=== PATIENT | male | born 1960 | race African-American/Black ===

== ENCOUNTER 2016-10-24 12:15 | Inpatient (IN) | payer OTHER ==
[~2016-10-24] VITALS: Ht 180.3 cm; Wt 63.8 kg
--- NOTE | ~2016-10-24 | EKG ---
PATIENT: LOUIS FRANCISCO UNIT #: [id number] Ventricular Rate: 60 BPM Atrial Rate: 60 BPM P-R Interval: 148 ms QRS Duration: 84 ms Q-T Interval: 502 ms QTC Calculation(Bezet): 502 ms P [place]: 62 degrees Calculated R [place]: 1 degrees Calculated T [place]: -85 degrees Diagnosis Line: Normal sinus rhythm Diagnosis Line: Voltage criteria for left ventricular hypertrophy Diagnosis Line: T wave abnormality, consider inferior ischemia Diagnosis Line: Prolonged QT Diagnosis Line: Abnormal ECG Diagnosis Line: When compared with ECG of 24-OCT-2016 13:15, Diagnosis Line: (unconfirmed) Diagnosis Line: Nonspecific T wave abnormality has replaced Diagnosis Line: inverted T waves in Anterolateral leads Diagnosis Line: Confirmed by ABDIRAHMAN BARBER MD ([id number]) on Diagnosis Line: 10/27/2016 7:10:19 AM INTERPRETING MD: DEDRICK
--- NOTE | ~2016-10-24 | DS ---
Unit #: [id number] #: [id number] Patient: LOUIS FRANCISCO [id number] [facility]. [place], [place] [address] [id number] I MR#: [id number] NAME: LOUIS FRANCISCO. ROOM: 314 Age: 56 Sex: M Admission Date: 10/24/2016 : 1960 Discharge Date: 10/31/2016 Attending Physician: Kevin Anthony M.D. Primary Care Physician: Tk David Sr., M.D. DISCHARGE SUMMARY DISCHARGE DIAGNOSES 1. Acute ischemic cerebrovascular accident. 2. Hypertension, hypertensive urgency. 3. Diabetes. 4. Aortic atheroma. 5. Hyperlipidemia. 6. Acute kidney injury. 7. Chronic systolic heart failure. 8. Chronic diastolic heart failure. HOSPITAL COURSE The patient is a 56-year-old male who presented to [facility] Emergency Department secondary to right-sided weakness. Apparently, he woke up in the middle of the night to go to the bathroom the night prior to presentation and noted some numbness in the right side. Apparently, he had then fallen down onto his bed and was unable to call for help. He was later found and was noted to have worsening of his weakness on the right side and was brought to the emergency department. In the emergency department, CT of the head showed increased attenuation of the left internal capsule, left insula, and left caudate head. The patient was admitted to the ICU and neurology consult was obtained. The patient was outside the window for intervention, however. He was started on a Cardene drip for elevated blood pressures. The patient's creatinine was noted to be elevated and did have an unknown baseline. Initial creatinine was 1.7 and it declined to 2. As a result, ultimately a renal consult was obtained. At this time, it is trending down with 2 having been the highest value. It is 1.4 at the time of this dictation. Patient underwent MRI of the brain which showed 9-10 mm subacute ischemic infarct in the anterior left putamen and probably involved a portion of the left internal capsule anterior limb as well. Angiography revealed moderate siphon disease bilaterally with mild atherosclerotic irregularity of the basilar artery with 50% to 60% distal most left vertebral artery stenosis and a filling defect adhered to the posterior wall of the left proximal internal carotid artery just above the bifurcation which had narrowed the lumen to 45%. It was thought to represent an adherent thrombus at the carotid bifurcation and was thought to be a strong potential source of distal embolization; however, CT angiography done following revealed that the filling defect in the left proximal internal carotid artery on the MRA was artifact and thought to be from densely calcified plaque in the proximal ICA and that there was no significant stenosis by NASCET criteria. As a result, no intervention was thought to be needed. Unit #: [id number] #: [id number] Patient: LOUIS FRANCISCO The patient underwent 2D echo which showed a visually estimated ejection fraction of 45% to 50%. Given the nature of his stroke, however, the patient did then undergo SMITH for better visualization and was noted to have severe diffuse atherosclerotic plaques in the aorta with grade 4 calcified and fresh appearing atheroma. As a result, the patient was started on Coumadin. During his stay, the patient was seen by physical therapy and has had recommendation of [facility]. The patient has been accepted by [facility] and currently in the process of insurance approval. Once approved, the patient will be discharged to rehab. DISCHARGE MEDICATIONS 1. Tylenol 650 mg p.o. q.6 hours p.r.n. mild pain, headache. 2. Lovenox 60 mg subcutaneous b.i.d. 3. Coumadin 5 mg Monday, Monday, Monday, Monday and 7.5 mg Monday, , Monday. 4. Amlodipine 10 mg daily. 5. Senokot S one tab p.o. b.i.d. 6. MiraLax 17 g p.o. b.i.d. p.r.n. constipation. 7. Lipitor 80 mg p.o. nightly. 8. Hydralazine 75 mg b.i.d. 9. Zestril 5 mg daily. 10. Levemir 10 units b.i.d. 11. NovoLog high-dose sliding scale with meals. 12. Aspirin 325 mg p.o. daily. 13. Vitamin D 5000 units weekly. FOLLOWUP The patient should follow up with Dr. Tom Wadsworth upon discharge from [facility]. He should follow up with his primary care provider within one week of discharge from rehab. Dictated by... Kevin Anthony M.D. FELA/lupe TD: 10/31/2016 13:58 JOB #: [id number] DISCHARGE SUMMARY Page 1 of 1 X Kevin Anthony MD DISCHARGE SUMMARY
--- NOTE | ~2016-10-24 | US77 ---
[facility] A Service of [facility] & [facility] RADIOLOGY TEXT RESULTS PATIENT: LOUIS FRANCISCO LOCATION: [facility] 314-01 : 56 UNIT #: [id number] AGE: [address]: Kevin Anthony MD SEX: M ORDER DR: [id number] [facility] [address] [place], [place] [address] [id number] I MR#: [id number] Acc #: [id number] NAME: LOUIS FRANCISCO. : 1960 SEX: M STUDY DATE/TIME: 10/26/2016 18:29 [facility] RO[facility]: [facility] STUDY DESCRIPTION: US Kidney Bilateral Complete Attending Physician: Kevin Anthony M.D. Ordering Physician: Edmund Wooten M.D. Primary Care Physician: Tk David Sr., M.D. MEDICAL IMAGING REPORT This report is preliminary unless electronic signature is present EXAM Bilateral renal ultrasound 10/26/2016 HISTORY Acute renal failure for 3 days. Abnormal renal function tests. Elevated BUN of 30, elevated creatinine of 2. Abnormally low eGFR 41.4 today. FINDINGS The right kidney measured 9.4 cm, while the left kidney measures 11 cm in longitudinal dimensions. There is no evidence of hydronephrosis or nephrolithiasis. No cystic or solid mass lesions were seen on either kidney. There is normal renal cortical echogenicity. Images of the bladder are normal. IMPRESSION 1. Negative renal ultrasound. 2. Images of the bladder are normal. Dictated by... Lloyd Arzate M.D. THIS IS AN ELECTRONICALLY VERIFIED REPORT Lloyd Arzate M.D. at 10/27/2016 2:07 PM KRT/pcl TD: 10/26/2016 22:11 JOB #: [id number] MEDICAL IMAGING REPORT Page 1 of 1 COPY
--- NOTE | ~2016-10-24 | CT71 ---
[facility] A Service of [facility] & [facility] RADIOLOGY TEXT RESULTS PATIENT: LOUIS FRANCISCO LOCATION: [address] : [birth year] UNIT #: [id number] AGE: [address]: Kevin Anthony MD SEX: M ORDER DR: [id number] [facility] [address] [facility]. [place], [place] [address] [id number] I MR#: [id number] Acc #: [id number] NAME: LOUIS FRANCISCO. : 1960 SEX: M STUDY DATE/TIME: 10/24/2016 14:23 UNIT: [facility] ROOM: [facility] STUDY DESCRIPTION: CT Head Wo Contrast Attending Physician: Gaston Vernon M.D. Ordering Physician: Neville Mitchell M.D. Primary Care Physician: Tk David Sr., M.D. MEDICAL IMAGING REPORT This report is preliminary unless electronic signature is present EXAM CT of the head without contrast HISTORY Right-sided facial droop and weakness since last night. TECHNIQUE Axial CT images were obtained from vertex of the skull through the skull base. No intravenous contrast material was administered. This CT exam was performed with one or more of the following radiation dose reduction techniques: automatic exposure control, adjustment of mA and/or kV according to patient size, and iterative reconstruction. FINDINGS There is decreased attenuation identified within the left caudate lobe and the anterior limb of the left internal capsule, as well as the left insula. I think findings are certainly suspicious for acute infarct, given history. I do not see any evidence of hemorrhagic transformation. There is no midline shift or mass effect. Patient has an additional area of decreased attenuation seen within the left cerebellar hemisphere, which is actually favored to be probably chronic. Certainly, MRI would allow for much more sensitive evaluation of chronicity of these findings. There is a mucous retention cyst seen within the right maxillary sinus. The remainder of the paranasal sinuses and mastoid air cells appear clear. No aggressive osseous abnormalities are seen. There are no focal soft tissue abnormalities. IMPRESSION 1. Subtle areas of decreased attenuation seen within the internal limb of the left internal capsule and left insula, as well as more STS. [facility] A Service of [facility] & [facility] RADIOLOGY TEXT RESULTS PATIENT: LOUIS FRANCISCO LOCATION: [address] : [birth year] UNIT #: [id number] AGE: [address]: Kevin Anthony MD SEX: M ORDER DR: apparent decreased attenuation seen within the left caudate head. I think, given history, findings are certainly suspicious for evolving infarct, especially in the absence of any priors for comparison. There is no evidence of hemorrhagic transformation. Further evaluation with MRI is recommended. There is also an area of decreased attenuation within the left cerebellar hemisphere, which is favored to represent an old infarct but again, further evaluation with MRI is recommended. Findings were reviewed with Dr. Mitchell in the emergency department at the time of this dictation. Dictated by... Mei Real M.D. THIS IS AN ELECTRONICALLY VERIFIED REPORT Mei Real M.D. at 10/25/2016 4:30 PM AFF/pcl TD: 10/25/2016 01:31 JOB #: [id number] MEDICAL IMAGING REPORT Page 1 of 1 COPY
--- NOTE | ~2016-10-24 | ST ---
Unit #: [id number] #: [id number] Patient: LOUIS FRANCISCO [id number] [place], [place] [address] [id number] I MR#: [id number] NAME: LOUIS FRANCISCO. : 1960 SEX: M STUDY DATE/TIME: 10/26/2016 UNIT: [facility] ROOM: [facility] STUDY DESCRIPTION: Lexiscan stress test Attending Physician: Kevin Anthony M.D. Primary Care Physician: Tk David Sr., M.D. CARDIOLOGY REPORT PROCEDURE PERFORMED Lexiscan Cardiolite stress test. REPORT Baseline EKG - Normal sinus rhythm with ventricular rate 91 beats per minute, left ventricular hypertrophy, T wave inversion in inferior and anterolateral leads with left atrial abnormality. Lexiscan was injected within the first minute, followed by Cardiolite. FINDINGS 1. EKG during the test showed a 1 mm to 1.[address] depression in inferior and anterolateral leads, which improved at the end of the recovery phase with some T wave inversion in those leads. Also noted occasional to frequent premature ventricular complexes especially in the recovery phase. 2. The patient had no complaints of chest pain, palpitations or dizziness. Had increased shortness of breath and fatigue, which resolved in recovery phase. 3. Maximum heart rate response was 115 beats per minute with a maximum blood pressure response of 141/72 mmHg. 4. Cardiolite was injected after Lexiscan within the first minute of the test. Radionuclide tests pending. Please correlate with nuclear images. Dictated by... Kita SteenRElaNEla for Deanne Recio/tatum TD: 10/26/2016 12:07 JOB #: [id number] Unit #: [id number] #: [id number] Patient: LOUIS FRANCISCO CARDIOLOGY REPORT Page 1 of 1 X Dana Voss APRN CARDIOLOGY REPORT
--- NOTE | ~2016-10-24 | CO ---
Unit #: [id number] #: [id number] Patient: LOUIS FRANCISCO [id number] [facility]. [place], [place] [address] [id number] I MR#: [id number] NAME: LOUIS FRANCISCO. ROOM: [facility] Age: 56 Sex: M Admission Date: 10/24/2016 : 1960 Attending Physician: Kevin Anthony M.D. Primary Care Physician: Tk David Sr., M.D. CONSULTATION REPORT REASON FOR CONSULTATION Preoperative evaluation and transesophageal echocardiogram. HISTORY OF PRESENT ILLNESS This is a 56-year-old -Omani male who was admitted to the hospital with right-sided weakness. The patient was in his usual state of health on the day prior to his admission. During the night, he developed left-sided weakness and was unable to get up. He crawled back to bed and went to sleep. The following morning, he awakened and his weakness on his right side was worse. He also had numbness. He denied any dizziness, palpitations, dyspnea, or chest pain. He had no slurred speech, difficulty with swallowing or vision disturbances. He came to the emergency room for evaluation where MRI of the brain found the patient to have a subacute ischemic cerebrovascular accident. He also had elevated creatinine of 1.6. He was hypertensive with blood pressure 217/102 mmHg. He was placed on a Cardene drip which has been currently weaned off. Blood pressure is better controlled. From a cardiac standpoint, the patient's risk factors for ischemic heart disease includes hypertension, hyperlipidemia, diabetes, family history of heart disease, and nicotine use in the past. He states he was reasonably active where he had no chest pain or shortness of breath. Fifteen years ago, he had a stress test for evaluation of chest pain which he said was normal. A month ago, he went to visit his brother out of state and his blood pressure was elevated. He went to the emergency room there and was started on two antihypertensive medications. He ran out of his blood pressure medicines two days ago. He denies paroxysmal nocturnal dyspnea, orthopnea, or leg edema. PAST MEDICAL HISTORY 1. Hypertension. 2. Hyperlipidemia. 3. Diabetes mellitus type 2. 4. Cigarette smoker. PAST SURGICAL HISTORY No previous surgeries. SOCIAL HISTORY The patient is retired. He smokes approximately two cigars a month, never smoked cigarettes. Lives a sedentary lifestyle. Smokes marijuana on occasion. No alcohol use. FAMILY HISTORY Unit #: [id number] #: [id number] Patient: LOUIS FRANCISCO Has a sister who had a stroke. Also, had a brother that had two strokes and a heart attack. ALLERGIES No known drug allergies. HOME MEDICATIONS 1. Lisinopril 10 mg daily. 2. Vitamin D 5000 units weekly. 3. NovoLog 70/30 per sliding scale. 4. Lantus 20 units subcutaneous nightly. 5. Crestor 10 mg daily. 6. Hydrochlorothiazide 12.5 mg daily. REVIEW OF SYSTEMS CONSTITUTIONAL: Negative for fever or chills. Has no weight gain or weight loss. HEENT: No headache, hearing or visual changes, difficulty with swallowing. Negative for dizziness. CARDIOVASCULAR: Has no symptoms of angina. Denies palpitations. No paroxysmal nocturnal dyspnea or orthopnea. No syncope or near syncope. RESPIRATORY: Negative for dyspnea, cough, or hemoptysis. GASTROINTESTINAL: No abdominal pain, nausea, vomiting. No constipation or melena. EXTREMITIES: Negative for lower extremity edema. NEUROLOGIC: Positive for right-sided weakness. PHYSICAL EXAMINATION VITAL SIGNS: Blood pressure 153/66, heart rate 76, temperature 98, BMI 19. GENERAL: This is a slim build 56-year-old -O[place]i male who is in no acute respiratory distress. NEUROLOGIC: He is awake, alert, oriented. He does have right-sided weakness. NECK: Trachea is midline. No thyromegaly or lymphadenopathy. No jugular venous distention. HEART: S1, S2 heart sounds are normal. No murmurs. No rubs. No clicks. Regular rate and rhythm. ABDOMEN: Soft, nontender but bowel sounds are present. No organomegaly. EXTREMITIES: Pedal pulses are palpable without leg edema. SKIN: Warm and dry. DIAGNOSTIC STUDIES LABORATORY: Sodium 136, potassium 3.2, BUN 28, creatinine 1.6. Platelets 202,000, hemoglobin 12.8, hematocrit 39.3, white count 9.3. Cholesterol 521, triglycerides 353, LDL 366, HDL 84. Troponin 0.07 to 0.06 to 0.05. CK total 109. IMAGING: MRI of the brain shows subacute ischemic infarct in the anterior putamen and probable involving the left internal capsule. MRI of the head shows 50% to 60% stenosis on the left vertebral artery. MRI of the neck shows left internal carotid artery thrombus. CARDIOVASCULAR: Electrocardiogram: Normal sinus rhythm with a rate of 83 beats per minute with left ventricular hypertrophy. QTc 491 ms. There is nonspecific [address] wave abnormality with T-wave inversion in the inferior Unit #: [id number] #: [id number] Patient: LOUIS FRANCISCO leads. IMPRESSION 1. Subacute anterior putamen infarct probably involving the left internal capsule. 2. Left carotid thrombus. 3. Hypokalemia. 4. Severe hypercholesterolemia. 5. Uncontrolled hypertension. 6. Diabetes mellitus type 2. PLAN 1. Cardiology was called for transesophageal echocardiogram and preoperative evaluation. The patient has been explained risks and benefits of SMITH to evaluate for cardiac cause of his stroke. The patient is agreeable. Will schedule for a.m. 2. The patient has elevated cholesterol, triglycerides, and LDL levels. He has been started on high-dose statin. 3. Blood pressure is currently controlled on Norvasc and lisinopril. Will continue for now. Because of left carotid thrombus, the patient is on heparin drip. He may require a left carotid endarterectomy as per vascular. The patient should undergo Lexiscan Cardiolite stress test to rule out coronary artery disease given his multiple risk factors. This will be scheduled for a.m. 4. Repeat troponin and electrocardiogram. Troponin is nondiagnostic for an acute myocardial infarction. 5. Supplement potassium. 6. Will follow the patient with you. Thank you for allowing us to assist with this patient's care. Dictated by... Katiana Jo M.D. AEP/lupe TD: 10/26/2016 11:37 JOB #: [id number] CONSULTATION REPORT Page 1 of 1 X Vernon Garcia APRN CONSULTATION REPORT
--- NOTE | ~2016-10-24 | CO ---
Unit #: [id number] #: [id number] Patient: LOUIS COBOS [id number] [place] [id number] [facility] [place] [facility]. [place], [place] [address] [id number] MR#: [id number] NAME: LOUIS COBOS. ROOM: 314 Age: 56 Sex: M Admission Date: 10/24/2016 : 1960 Attending Physician: Kevin Anthony M.D. Primary Care Physician: Tk David Sr., M.D. Consultation Date: 10/26/2016 CONSULTATION REPORT REASON FOR CONSULTATION Renal insufficiency. Thank you very much for asking me to see this patient in consultation. HISTORY OF PRESENT ILLNESS Mr. Cobos is a 56-year-old male with a history of diabetes and hypertension, he states for many, many years, who presented to the hospital on 10/24/2016 with severe right-sided weakness and subsequently was admitted and felt to have an acute CVA, although apparently passed the time for thrombolytics, he was found to have a left internal capsular CVA. Also, apparently had a left carotid thrombus. He had a blood pressure upon presentation was 200/102. He was admitted and placed in the unit, put on Cardizem drip initially and blood pressure has improved some. He was noted upon presentation to have a creatinine of 1.7, is up to 2.0 today. Because of this, I was asked to see the patient. The patient states he has never been told he had any kidney problems, but on further questioning, he said he was told about 5 years ago, he had some protein in his urine. He said then it went away and maybe came back, he was not sure and he also states he never was told the function of his kidneys were abnormal. He apparently was in [place] 1 or 2 months ago. He said he had a lot of swelling at that time, and he was told that his protein was low and he needs to eat more protein. He currently is alert. Denies any chest pain, chest heaviness, shortness of breath. Still unable to move his right side of his body, a little bit of numbness in his right face. MEDICATIONS At home included Zestril which is on hold, Crestor, hydrochlorothiazide and insulin. Here, he is on Lovenox, Coumadin, hydralazine, Lipitor, IV fluids, amlodipine, aspirin, Tylenol. ALLERGIES No known drug allergies. SOCIAL HISTORY He does not drink alcohol. He smokes maybe 2 cigars a month. He is retired. Occasional marijuana use. FAMILY HISTORY He has a sister and brother, both had strokes and hypertension. His father actually had renal failure, was on dialysis who . REVIEW OF SYSTEMS Unit #: [id number] #: [id number] Patient: LOUIS COBOS He denies any headaches currently, visual problems, sinus problems. No cough or hemoptysis. No difficulty swallowing. No neck pain, neck stiffness. No chest pain, chest heaviness, or palpitations. No shortness of breath. No abdominal pain. No lower extremity swelling. No skin rashes. He states he does have "rheumatoid arthritis" and he takes nonsteroidals couple of times a week at the most. Of course, the weakness in his right side as mentioned above. No urinary symptoms. PHYSICAL EXAMINATION VITAL SIGNS: Temperature is 98.8, pulse 79, blood pressure 121 to 174 over 50s to 90s. Last check was 136/56. He has had 2803 in and 1200+ out. HEENT: Normocephalic and atraumatic. Pupils are equal, round, and reactive to light. Extraocular muscles are intact. Hearing appears to be normal. Mouth clear. No erythema. No exudate. NECK: Supple. No JVD. No adenopathy. CARDIAC: He appears to have a regular rhythm, maybe about 1/6 systolic ejection murmur. LUNGS: Clear bilaterally. No wheezes, rhonchi, or rales. ABDOMEN: Bowel sounds positive. Nontender. Soft. EXTREMITIES: He has no lower extremity swelling. SKIN: No rashes. : Deferred. NEUROLOGIC: He is unable to move his right side of his body. DIAGNOSTIC STUDIES LABORATORY RESULTS: Today shows sodium of 138, potassium 3.6, chloride is 104, bicarb is 28, BUN of 30 creatinine 2.0. Glucose 109. His albumin last checked was 2.6. Liver function tests are normal. Cholesterol is 521. His calcium is 8.1. Hemoglobin 12.3, white count 9100, platelets 284,000. CPK was 93. His echo showed 45% to 50% EF, left ventricular hypertrophy and patent foramina ovale. He did have CT scan angiogram of his head and neck on 10/25/2016. ASSESSMENT AND PLAN 1. Renal insufficiency. This is a gentleman who sounds like he probably has nephrotic syndrome with low albumin, high cholesterol and was told to eat more protein a month ago with a low albumin; now, I do not have urine, would like to go ahead and do UA, culture, sensitivity, random urine protein to creatinine ratio. I do not know what his previous creatinines were. We then tried to get hold of his previous creatinines, but certainly with history could easily have diabetes causing kidney problems, although again unsure about this. We will check serum protein immunofixation. Again, we will look at his urine to see if he has a lot of blood in it as well. Depending on what all that shows, depending on what further workup and treatment. Also would like to check a renal ultrasound to rule out obstruction of any masses on his kidneys. He could have acute renal insufficiency secondary to accelerated hypertension versus contrast dye versus other. Again, we will follow. 2. Hypertension. 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 If he does have a lot of proteinuria, would recommend these agents, but for now, we will hold further blood pressure medications per Cardiology. 3. Diabetes mellitus. 4. Decreased ejection fraction, patent foramen ovale. 5. Cerebrovascular accident with right paralysis. Unit #: [id number] #: [id number] Patient: LOUIS COBOS Dictated by..Deanne Negro/mel TD: 10/27/2016 06:13 JOB #: [id number] CONSULTATION REPORT Page 1 of 1 X Keena Wooten MD X CONSULTATION REPORT
--- NOTE | ~2016-10-24 | MR122 ---
[facility] A Service of [facility] & [facility] RADIOLOGY TEXT RESULTS PATIENT: LOUIS FRANCISCO LOCATION: [place] [id number] : [birth year] UNIT #: [id number] AGE: [address]: Kevin Anthony MD SEX: M ORDER DR: [id number] [facility] [address]. [place], [place] [address] [id number] I MR#: [id number] #: [id number] NAME: LOUIS FRANCISCO : 1960 SEX: M STUDY DATE/TIME: 10/25/2016 10:48 UNIT: [facility] ROOM: [facility] STUDY DESCRIPTION: MR MRA Head Wo Contrast Attending Physician: Kevin Anthony M.D. Ordering Physician: Juan Carlos Johnson M.D. Primary Care Physician: Tk David Sr., M.D. MRI CENTER REPORT This report is preliminary unless electronic signature is present. EXAM Intracranial MR angiogram HISTORY Right-sided facial droop and weakness beginning midnight on 10/23/2016. TECHNIQUE MR angiographic imaging was performed from the skull base to [place] of Amanda with 2-D bdyx-lx-wseudp and 3-D MRA techniques. FINDINGS There is mild to moderate atherosclerotic irregularity seen in both carotid siphons and in the basilar artery. There is a stenosis of the distal left vertebral artery just before the basilar artery of approximately 50% to 60% but the right vertebral is the dominant vertebral. No major branch vessel occlusions are seen. There is no evidence of aneurysm or vascular malformation. IMPRESSION Moderate siphon disease bilaterally with mild atherosclerotic irregularity of the basilar artery with a 50% to 60% distal most left vertebral artery stenosis. No major branch vessel occlusions are seen intracranially. STAT * RESULT Dictated by... Raymundo Rico M.D. THIS IS AN ELECTRONICALLY VERIFIED REPORT Raymundo Rico M.D. at 10/25/2016 4:50 PM JANICE/adam TD: 10/25/2016 11:48 [facility] A Service of [facility] & [facility] RADIOLOGY TEXT RESULTS PATIENT: LOUIS FRANCISCO LOCATION: [facility] CICCU2-08 : [birth year] UNIT #: [id number] AGE: [address]: Kevin Anthony MD SEX: M ORDER DR: JOB #: [id number] MRI CENTER REPORT Page 1 of 1 COPY
--- NOTE | ~2016-10-24 | CO ---
Unit #: [id number] #: [id number] Patient: LOUIS FRANCISCO [id number] [facility] [address] [facility]. [place], [place] [address] [id number] I MR#: [id number] NAME: LOUIS FRANCISCO. ROOM: [facility] Age: 56 Sex: M Admission Date: 10/24/2016 : 1960 Attending Physician: Kevin Anthony M.D. Primary Care Physician: Tk David Sr., M.D. Consultation Date: 10/25/2016 CONSULTATION REPORT PRIMARY CARE PHYSICIAN Tk David M.D. REASON FOR CONSULTATION Stroke-like symptoms. PATIENT IDENTIFICATION This is a 56-year-old right-handed male, who was evaluated in room ICU bed 8 at [facility]. SOURCE OF INFORMATION The patient and evaluation done by admitting team and ICU team. PROBLEM LIST 1. Hypertension now with uncontrolled hypertension. 2. Diabetes mellitus. 3. He has right-sided weakness. 4. He does have hyperlipidemia. HISTORY OF PRESENT ILLNESS This is a 56-year-old gentleman, who actually presented yesterday about 1215 to the emergency room. He came in via EMS. He reported stroke like symptoms, but when I asked, it started the night before. He tried to get up to go to the bathroom and he fell because he was unable to move the right side. He initially thought leg was numb and decided to crawl back to the bed thinking that he might get better in the morning as it may have been something that was caused by him sleeping over it. When he woke up in the morning, he found that his right upper extremity was also significantly weak, so at that time, he decided to come to the hospital. He was too late for any intervention. Now what we found out on admission was that his initial blood pressure was 200 systolic over 112 diastolic. His random glucose 265. His BUN and creatinine were elevated at 26 and 1.7. His troponin was 0.07. His cholesterol was 521, his triglyceride was 535, his LDL was 366. He had a head CT done, which showed subtle area of decreased attenuation within the internal limb of the left internal capsule and left insula. His MRI confirms that MRA or CTA has not been done because of his renal issues. His blood pressure is better now. He does not take aspirin. He acknowledges some cigars and occasional marijuana use, but denies any drugs. No migraines. Unit #: [id number] #: [id number] Patient: LOUIS FRANCISCO No seizures. No exposure to toxin. No prior TIAs. PAST MEDICAL HISTORY As discussed above. FAMILY HISTORY Reviewed and no primary neurologic issues. ALLERGIES None. HOME MEDICATIONS Lisinopril 20 mg p.o. daily in the morning, vitamin D, NovoLog 70/30, Lantus, Crestor, Microzide. SOCIAL HISTORY He is . He apparently is disabled. Uses cigars. He denies any alcohol use. He acknowledges marijuana use. REVIEW OF SYSTEMS GENERAL: Detailed review of system was attempted. The patient denies any weight issues, fever, chills, rigor, or sweats. HEENT: No headaches. No double vision, earache, runny nose, or sore throat. CARDIOVASCULAR: No chest pain, clubbing, cyanosis, orthopnea, or palpitation. PULMONARY: No shortness of air, cough, or expectoration. GASTROINTESTINAL: No nausea, vomiting, diarrhea, or constipation. GENITOURINARY: No genitourinary symptom. EXTREMITIES: As discussed. BACK: No back problem. PSYCHIATRIC: No psychiatric issue. NEUROLOGIC: Right-sided weakness. He is diabetic. No other hematologic, dermatologic, or endocrine problems were known to me. PHYSICAL EXAMINATION VITAL SIGNS: His temperature is 99.3, pulse 59, respirations 20, blood pressure 164/69, O2 saturations 97% to 100%. Weight of 138 pounds. NEUROLOGIC: The patient is awake. He is alert. He is oriented. He can name and he can follow commands. No right or left confusion. No finger agnosia. Cranial nerve examination demonstrates full mcmhaon of vision to confrontation. Eye movements are conjugate. I did not see any ptosis. I did not see any nystagmus. Extraocular movements are intact. Sensation on the face and scalp are normal. Strength of muscles of facial expression normal. Hearing seemed to be intact bilaterally. Tongue was midline. Uvula was midline. Palate elevation normal. Head turning and shoulder shrugs were unremarkable. Motor examination demonstrated in the right upper extremity probably 1/5. Unit #: [id number] #: [id number] Patient: LOUIS FRANCISCO I did not see any other movement elsewhere. Left side is 5/5. Sensory examination intact for soft touch and pain sensation. No extinction was seen. Romberg was not evaluated. I could not get any reflexes. Toes are mute. Gait examination was deferred because of significant right-sided weakness. Coordination on the left side was okay. DIAGNOSTIC STUDIES LABORATORY RESULTS: Reviewed. IMAGING STUDIES: Reviewed. IMPRESSION This is a very interesting 56-year-old gentleman, who has right-sided weakness. This is left internal capsule infarct. He was not a tPA or interventional candidate because of the duration that he came in. He does have risk factors. I will check his MRA. I will check his other labs and we will see how things go. I will keep you informed. This is small vessel disease, nonhemorrhagic, acute, and again he has risk factors, so we will follow up and see how things go. I will keep you informed. Call me for any other questions, issues, or concerns. Good blood pressure control. Cholesterol management, smoking cessation, aspirin on regular basis instead of every now and then. PT/OT and rehab. Call me for any other questions, issues, or concerns. Dictated by... Deanne Crews/mel TD: 10/26/2016 04:56 JOB #: [id number] CONSULTATION REPORT Page 1 of 1 X Juan Carlos Johnson MD X CONSULTATION REPORT
--- NOTE | ~2016-10-24 | MR134 ---
[facility] A Service of [facility] & [facility] RADIOLOGY TEXT RESULTS PATIENT: LOUIS FRANCISCO LOCATION: [place] [id number] : [birth year] UNIT #: [id number] AGE: [address]: Kevin Anthony MD SEX: M ORDER DR: [id number] [facility] [address] [facility]. [place], [place] [address] [id number] I MR#: [id number] Acc #: [id number] NAME: LOUIS FRANCISCO : 1960 SEX: M STUDY DATE/TIME: 10/25/2016 10:59 UNIT: [facility] ROOM: [facility] STUDY DESCRIPTION: MR MRA Neck Wo Contrast Attending Physician: Kevin Anthony M.D. Ordering Physician: Juan Carlos Johnson M.D. Primary Care Physician: Tk David Sr., M.D. MRI CENTER REPORT This report is preliminary unless electronic signature is present. EXAM Cervical carotid MR angiogram. HISTORY Onset of right-sided facial droop and weakness beginning midnight 10/23/2016. TECHNIQUE MR angiographic imaging was performed across carotid bifurcations with 2-D scaq-ej-mattko and 3-D MRA techniques. FINDINGS Plaque is seen along the posterior wall of both carotid bulbs. Degree of stenosis is mild on the right side. On the left side, there is a filling defect projecting into the lumen from the posterior wall. It narrows the lumen at least 75% to 80% with poor flow in the internal carotid above this. Findings suspicious for an adherent thrombus and this is certainly potential source for the patient's right-sided weakness. Antegrade flow is seen in both vertebral arteries with wide patency of the vertebrals in the cervical segments. IMPRESSION 1. Filling defect adherent to the posterior wall of the left proximal internal carotid artery just above the bifurcation, narrowing the lumen approximate 75%. This likely represents adherent thrombus at the carotid bifurcation and is a strong potential source for distal embolization. 2. Minimal disease on the right side with no significant stenosis by NASCET criteria. Findings will be called to the unit at the time of this dictation. Dictated by... Raymundo Rico M.D. [facility] A Service of [facility] & [facility] RADIOLOGY TEXT RESULTS PATIENT: LOUIS FRANCISCO LOCATION: [address] : [birth year] UNIT #: [id number] AGE: [address]: Kevin Anthony MD SEX: M ORDER DR: THIS IS AN ELECTRONICALLY VERIFIED REPORT Raymundo Rico M.D. at 10/25/2016 4:50 PM RLF/shila TD: 10/25/2016 12:01 JOB #: [id number] MRI CENTER REPORT Page 1 of 1 COPY
--- NOTE | ~2016-10-24 | EKG ---
PATIENT: LOUIS FRANCISCO UNIT #: [id number] Ventricular Rate: 79 BPM Atrial Rate: 79 BPM P-R Interval: 144 ms QRS Duration: 80 ms Q-T Interval: 384 ms QTC Calculation(Bezet): 440 ms P [place]: 72 degrees Calculated T [place]: -84 degrees Diagnosis Line: Normal sinus rhythm Diagnosis Line: Left ventricular hypertrophy Diagnosis Line: T wave abnormality, consider inferior ischemia Diagnosis Line: Abnormal ECG Diagnosis Line: When compared with ECG of 25-OCT-2016 08:06, Diagnosis Line: (unconfirmed) Diagnosis Line: QT has shortened Diagnosis Line: Confirmed by ABDIRAHMAN BARBER MD ([id number]) on Diagnosis Line: 10/27/2016 7:13:21 AM INTERPRETING NICA TSE
--- NOTE | ~2016-10-24 | CO ---
Unit #: [id number] #: [id number] Patient: LOUIS COBOS [id number] [facility] [address] [facility]. [place], [place] [address] [id number] MR#: [id number] NAME: LOUIS COBOS. ROOM: [facility] Age: 56 Sex: M Admission Date: 10/24/2016 : 1960 Attending Physician: Kevin Anthony M.D. Primary Care Physician: Tk David Sr., M.D. Consultation Date: 10/25/2016 CONSULTATION REPORT REASON FOR CONSULTATION Left internal carotid artery stenosis. HISTORY OF PRESENT ILLNESS This is a 56-year-old male, who reports that he woke up in the middle of the night last night to go to the restroom. He had trouble while walking to the bathroom with losing his balance due to his right leg and arm being extremely weak. He fell against the wall, but never lost consciousness. He called his landlord, who had keys to his apartment and his landlord helped him get to the hospital. While at [facility], he underwent CT imaging of his head, which demonstrated a likely evolving infarct. Today, he has undergone an MRA of the neck, which identified a filling defect of the posterior wall of the left proximal internal carotid artery just above the bifurcation with luminal narrowing of approximately 75% with concern for being a strong potential source for distal embolization. PAST MEDICAL HISTORY Significant for hypertension and diabetes. PAST SURGICAL HISTORY Includes colonoscopy. ALLERGIES Include no known allergies. MEDICATIONS Lisinopril 10 mg p.o. daily, vitamin D 5000 units p.o. weekly, NovoLog 70/30 sliding scale with meals, Lantus 22 units subcutaneous at bedtime, rosuvastatin 10 mg p.o. daily, hydrochlorothiazide 12.5 mg p.o. daily. SOCIAL HISTORY The patient lives at home alone. He is retired and previously worked at a [employer] He denies smoking cigarettes, but reports occasional smoking of cigars. He denies any alcohol use other than occasional social drinks with reported 4 drinks this year. He denies IV drug use, but admits to occasionally smoking marijuana. FAMILY HISTORY Mother , cancer and diabetes mellitus. Father , history of renal failure and hemodialysis. The patient has siblings, who have experienced cerebrovascular accidents. Unit #: [id number] #: [id number] Patient: LOUIS COBOS REVIEW OF SYSTEMS Other than right-sided paralysis, the complete review of systems was completed and otherwise negative. PHYSICAL EXAMINATION VITAL SIGNS: Temperature 98.3, heart rate 80, respirations 20, blood pressure 162/74. GENERAL APPEARANCE: This is a well-developed and well-nourished male, in no acute distress. He is in a good mood. Has appropriate affect and answers all of my questions appropriately. HEENT: Normocephalic, pupils equal, round, and reactive to light. NECK: No carotid bruits heard on auscultation. CARDIAC: Regular rate and rhythm with no murmurs noted. LUNGS: Clear to auscultation, nonlabored, the patient is on room air. ABDOMEN: Positive bowel sounds. Abdomen is soft, nontender. No distention. No palpable pulsatile masses felt on examination. MUSCULOSKELETAL: Moves left upper extremity and lower extremity without difficulty. Right upper extremity and lower extremity with paralysis. VASCULAR: Palpable radial, femoral, dorsalis pedis, posterior tibialis pulses bilaterally. INTEGUMENTARY: Skin is warm and dry. He has no obvious sores, lesions, or nonhealing wounds. NEUROLOGIC: The patient has normal strength of his left side of his body. His right side of his body as mentioned before is paralyzed. He has markedly decreased sensations to the right side of his body. He can very minimally move his thumb on the right side. DIAGNOSTIC STUDIES IMAGING STUDIES: The patient underwent on 10/24/2016, CTA of the head, with impression, subtle areas of decreased attenuation seen within the internal limb of the left internal capsule and left insula. Given his history, likely suspicious for evolving infarct. The patient underwent MRA of the neck on 10/25/2016 with impression, 1. Filling defect adherent to the posterior wall of the left proximal internal carotid artery just above the bifurcation, narrowing the lumen approximately 75%. Likely represents adherent thrombus at the carotid bifurcation is a strong potential source for distal embolization. Minimal disease on the right with no significant stenosis by NASCET criteria. LABORATORY RESULTS: Sodium 136, potassium 3.2, chloride 101, CO2 29, BUN 28, creatinine 1.6, glucose 218. Hemoglobin 14.8, hematocrit 44.3, WBCs 10.4, platelets 347. ASSESSMENT AND PLAN 1. Carotid atherosclerosis. 2. Mild renal insufficiency. PLAN We will make the patient n.p.o. except for medications with sips of water. The patient has mild renal insufficiency, so we will start him on normal saline at 75 mL an hour x1 liter. We will institute heparin drip presently. Dr. Gutierrez notify and will see the patient to determine further imaging and possible treatment plan. Thank you for allowing us to see Mr. Cobos in consultation. Dictated by... Theodore Gates APRN for Unit #: [id number] #: [id number] Patient: MARYAMLOUIS M.D. SS/mel TD: 10/25/2016 17:58 JOB #: [id number] CONSULTATION REPORT Page 1 of 1 X X CONSULTATION REPORT
--- NOTE | ~2016-10-24 | EKG ---
PATIENT: LOUIS FRANCISCO UNIT #: [id number] Ventricular Rate: 83 BPM Atrial Rate: 83 BPM P-R Interval: 146 ms QRS Duration: 72 ms Q-T Interval: 418 ms QTC Calculation(Bezet): 491 ms P [place]: 81 degrees Calculated R [place]: 36 degrees Calculated T [place]: -78 degrees Diagnosis Line: Normal sinus rhythm Diagnosis Line: Left ventricular hypertrophy with repolarization Diagnosis Line: abnormality Diagnosis Line: Prolonged QT Diagnosis Line: Abnormal ECG Diagnosis Line: No previous ECGs available Diagnosis Line: Confirmed by DAVID JOSHI MD ([id number]) on Diagnosis Line: 10/25/2016 5:05:25 PM INTERPRETING MD: MADELYN BEEBE
--- NOTE | ~2016-10-24 | CT23 ---
[facility] A Service of [facility] & [facility] RADIOLOGY TEXT RESULTS PATIENT: LOUIS FRANCISCO LOCATION: [place] [address] : [birth year] UNIT #: [id number] AGE: [address]: Kevin Anthony MD SEX: M ORDER DR: [id number] [place] [address] [place], [place] [address] [id number] I MR#: [id number] Acc #: [id number] NAME: LOUIS FRANCISCO : 1960 SEX: M STUDY DATE/TIME: 10/25/2016 14:58 UNIT: [facility] ROOM: [facility] STUDY DESCRIPTION: CT Angio Neck Attending Physician: Kevin Anthony M.D. Ordering Physician: Livan Gutierrez M.D. Primary Care Physician: Tk David Sr., M.D. MEDICAL IMAGING REPORT This report is preliminary unless electronic signature is present EXAM CT scan head and neck with contrast with carotid CT angiography FINDINGS Result text under order number [id number]. Please see this order for result text. STAT * RESULT Dictated by... Raymundo Rico M.D. THIS IS AN ELECTRONICALLY VERIFIED REPORT Raymundo Rico M.D. at 10/26/2016 6:58 AM RLF/to TD: 10/25/2016 16:53 JOB #: [id number] MEDICAL IMAGING REPORT Page 1 of 1 COPY
--- NOTE | ~2016-10-24 | CO ---
Unit #: [id number] #: [id number] Patient: LOUIS FRANCISCO [id number] [address] [address] [id number] E MR#: [id number] NAME: LOUIS FRANCISCO. ROOM: Age: 56 Sex: M Admission Date: 10/24/2016 : 1960 Attending Physician: Neville Mitchell M.D. Primary Care Physician: Tk David Sr., M.D. Consultation Date: 10/24/2016 CONSULTATION REPORT REASON FOR CONSULT ICU management. HISTORY OF PRESENT ILLNESS This is a very pleasant 56-year-old -[place] gentleman with past medical history significant for hypertension, diabetes, hyperlipidemia who presented to the emergency room with right-sided weakness. Patient stated that he was at his baseline up to yesterday night after he ate and he started feeling nauseated and not feeling very well. He tried to get up at that time and move to the bathroom; however, he fell because he was unable to move his right lower extremity. Patient thought at that time that his leg was numb and he decided to crawl back to bed thinking he would get better in the morning. When he woke up this morning, he found that his right upper extremity was numb and weak. Patient stated that he goes regularly to his doctor and his blood pressure is normally stable and this never happened to him before. PAST MEDICAL HISTORY 1. Hypertension. 2. Hyperlipidemia. 3. Diabetes. PAST SURGICAL HISTORY Colonoscopy and polypectomy. SOCIAL HISTORY The patient smokes cigars and he never smoked cigarettes. No history of alcohol or drug abuse. ALLERGIES No known drug allergies. FAMILY HISTORY Hypertension, hyperlipidemia, and breast cancer. MEDICATIONS Home medications are getting obtained at the time of dictation. REVIEW OF SYSTEMS A 12-point review of systems were obtained and were negative except for headache, right-sided weakness. PHYSICAL EXAMINATION GENERAL: The patient is in no acute distress. Unit #: [id number] #: [id number] Patient: LOUIS FRANCISCO VITAL SIGNS: Blood pressure 220/114, respiratory rate 20, O2 saturation 98%. HEENT: Atraumatic, normocephalic. PERRLA. EOMI. NECK: Supple. No JVD. No lymphadenopathy. CHEST: Clear to auscultation bilaterally. HEART: S1, S2. Mild systolic murmur. ABDOMEN: Soft, nontender. Bowel sounds are positive. No hepatosplenomegaly. EXTREMITIES: No edema or cyanosis. SKIN: No rashes. CENTRAL NERVOUS SYSTEM: Awake, alert, oriented x3. Right-sided paralysis. Left side with no focal weakness. DIAGNOSTIC STUDIES LABORATORY: Creatinine 1.7, CO2 of 24. White blood count 10.4, hemoglobin 14.8. IMAGING: CT head is consistent with acute basilar stroke. ASSESSMENT 1. Acute ischemic cerebrovascular accident. 2. Hypertensive emergency. 3. Hyperlipidemia. 4. Diabetes. PLAN 1. The patient will be monitored in intensive care unit overnight with Cardene drip. Goal systolic blood pressure is 190 for the next 8-12 hours and then slowly will taper down to normal. 2. Speech evaluation. 3. Gentle IV hydration while NPO. 4. Aspirin and strict blood sugar and cholesterol control. 5. Extensive rehab is needed at some point. 6. Deep venous thrombosis prophylaxis. I would like to thank you for allowing me to be a part of this patient's care. Dictated by... Deanne Linder TD: 10/24/2016 16:01 JOB #: [id number] Unit #: [id number] #: [id number] Patient: LOUIS FRANCISCO CONSULTATION REPORT Page 1 of 1 X MARIELOS MANUEL MD CONSULTATION REPORT
--- NOTE | ~2016-10-24 | CT17 ---
[facility] A Service of [facility] & [facility] RADIOLOGY TEXT RESULTS PATIENT: LOUIS FRANCISCO LOCATION: [place] [address] : 56 UNIT #: [id number] AGE: [address]: Kevin Anthony MD SEX: M ORDER DR: [id number] [facility] [address]. [place], [place] [address] [id number] I MR#: [id number] [facility] #: [id number] NAME: LOUIS FRANCISCO : 1960 SEX: M STUDY DATE/TIME: 10/25/2016 14:58 UNIT: [facility] ROOM: [facility] STUDY DESCRIPTION: CT Angio Head Attending Physician: Kevin Anthony M.D. Ordering Physician: Livan Gutierrez M.D. Primary Care Physician: Tk David Sr., M.D. MEDICAL IMAGING REPORT This report is preliminary unless electronic signature is present EXAM CT scan head and neck with contrast with carotid CT angiography HISTORY Recent infarct left cerebral hemisphere with right-sided weakness occurring on 10/24/2016. Abnormal MRA demonstrating a filling defect in the proximal internal carotid artery on the right side. TECHNIQUE Thin section imaging was obtained from the mid mediastinum to the top of head with contrast. 100 mL of Isovue was used. CT angiography was performed with thick sliding MIPs curved planar reformats and 3-D volumetric imaging with surface shaded and volume shaded display. This CT exam was performed with one or more of the following radiation dose reduction techniques: automatic exposure control, adjustment of mA and/or kV according to patient size, and iterative reconstruction. FINDINGS Extravascular structures are unremarkable. The CT angiographic images show moderate plaque at the great vessel origins without significant great vessel origin stenosis. There is approximately 20% stenosis of the left subclavian artery just proximal to the left vertebral origin. Both vertebral arteries are widely patent at their origins. The right is little more dominant than the left. The basilar artery is widely patent. In the carotid circulation there is plaque in both common carotid arteries which is both calcified and noncalcified. There is plaque across both carotid bifurcations. There is no evidence of thrombus projecting into the lumen on either side. The abnormality noted on MRI presumably represents artifact. There is rather extensive calcium at the proximal internal carotid on the left side that could account for this artifact. [facility] A Service of [facility] & [facility] & [facility] RADIOLOGY TEXT RESULTS PATIENT: LOUIS FRANCISCO LOCATION: [facility] C[facility]-08 : 56 UNIT #: [id number] AGE: [address]: Kevin Anthony MD SEX: M ORDER DR: The distal cervical internal carotids up through the siphons show mild eccentric calcified plaque without significant stenosis. In the intracranial circulation there is no evidence of aneurysm, vascular malformation or major branch vessel occlusion. IMPRESSION 1. The filling defects seen in the left proximal internal carotid artery on the MRA represents artifact probably from dense calcified plaque in the proximal ICA. There is no significant stenosis by NASCET criteria across either carotid bifurcation. 2. Mild multifocal atherosclerotic disease as described above. Dictated by... Raymundo Rico M.D. THIS IS AN ELECTRONICALLY VERIFIED REPORT Raymundo Rico M.D. at 10/26/2016 6:58 AM NUPURF/nancy TD: 10/25/2016 16:51 JOB #: [id number] MEDICAL IMAGING REPORT Page 1 of 1 COPY
--- NOTE | ~2016-10-24 | HP ---
Unit #: [id number] #: [id number] Patient: LOUIS FRANCISCO [id number] [address] [address] [id number] E MR#: [id number] NAME: LOUIS FRANCISCO. ROOM: Age: 56 Sex: M Admission Date: 10/24/2016 : 1960 Attending Physician: Neville Mitchell M.D. Primary Care Physician: Tk David Sr., M.D. HISTORY AND PHYSICAL CHIEF COMPLAINT Right-sided weakness. HISTORY OF PRESENT ILLNESS The patient is a 56-year-old male with history of hypertension and diabetes, brought to the emergency room with right-side weakness. The patient woke up in the middle of the night to go to the bathroom. While returning back to the bed, the patient noted that the patient had numbness associated with weakness of the right side of the body. The patient fell down in the bed and was unable to call for help. The patient was found to have worsening weakness on the right side and was brought to the emergency room for the above reasons. The patient had a CT of the head that showed decreased attenuation of the left internal capsule, left insula, and left (1) level concerning for evolving infarct and is being admitted for the above reasons. The patient denies any headache and denies any nausea, vomiting, chest pain, diaphoresis. PAST MEDICAL HISTORY 1. History of hypertension. 2. Diabetes. PAST SURGICAL HISTORY None. ALLERGIES No known drug allergies. SOCIAL HISTORY Smokes cigars occasionally. Denies any alcohol or any illicit drug abuse. FAMILY HISTORY Reviewed and none. REVIEW OF SYSTEMS Only pertinent positive findings with right-sided weakness and numbness and fall. Denies any nausea, vomiting, chest pain, abdominal pain. Other systems reviewed and none. HOME MEDICATIONS 1. Lisinopril. 2. Vitamin D. 3. NovoLog Mix 70/30. 4. Lantus. 5. Crestor. Unit #: [id number] #: [id number] Patient: LOUIS FRANCISCO 6. Microzide. PHYSICAL EXAMINATION VITAL SIGNS: Temperature is afebrile, pulse 92, blood pressure 200/102, respiratory rate 16, saturating 97% on 3 L nasal cannula. HEENT: Head atraumatic, normocephalic. Pupils equal, round, and reactive to light and accommodation. Extraocular movements are intact. NECK: Supple. LUNGS: Decreased air entry at the bases. HEART: Regular rate and rhythm. ABDOMEN: Soft. EXTREMITIES: The patient has weakness on the right side, right upper extremity and lower extremity, more on the right lower extremity. Unable to move the legs. Left-sided strength equal. PSYCHIATRIC: Mood and affect are appropriate. DIAGNOSTIC STUDIES LABORATORY: Sodium 137, potassium 3.7, chloride 100, bicarbonate 24, glucose 265, BUN 26, creatinine 1.7, calcium 8.7. AST 15, ALT 11, albumin 2.6. INR 1. WBC 10.4, hemoglobin 14.8, hematocrit 44.3, platelets 347,000. Patient has received aspirin in the emergency room. IMAGING: CT of the head shows decreased attenuation of the left internal capsule, left insula, left (2) level, evolving infarct and EKG shows normal sinus rhythm, left ventricular hypertrophy, prolonged QT interval of 491. ASSESSMENT 1. Right-sided weakness. 2. Uncontrolled hypertension. 3. Diabetes mellitus. PLAN Plan to admit the patient to the inpatient in the intensive care unit. Patient will have MRI of the brain without contrast. Will have neurology and critical care consult. Continue with the Cardene drip. Check the echo and lipid profile. The patient will be on cerebrovascular accident protocol. Further recommendations will follow as more lab results are available. Dictated by Deanne Cagle TD: 10/24/2016 17:01 JOB #: [id number] Unit #: [id number] #: [id number] Patient: LOUIS FRANCISCO HISTORY AND PHYSICAL Page 1 of 1 X RALPH CASSIDY MD HISTORY AND PHYSICAL
--- NOTE | ~2016-10-24 | MR18 ---
[facility] A Service of [facility] & [facility] RADIOLOGY TEXT RESULTS PATIENT: LOUIS FRANCISCO LOCATION: [address] : [birth year] UNIT #: [id number] AGE: [address]: Kevin Anthony MD SEX: M ORDER DR: [id number] [facility] [address]. [place], [place] [address] [id number] I MR#: [id number] Acc #: [id number] NAME: LOUIS FRANCISCO. : 1960 SEX: M STUDY DATE/TIME: 10/24/2016 19:29 UNIT: [facility] ROOM: [facility] STUDY DESCRIPTION: MR Brain Wo Contrast Attending Physician: Kevin Anthony M.D. Ordering Physician: Gaston Vernon M.D. Primary Care Physician: Tk David Sr., M.D. MRI CENTER REPORT This report is preliminary unless electronic signature is present. EXAM MRI brain HISTORY Cerebrovascular accident. Stroke symptoms, right arm, right leg weakness and numbness since midnight. Right facial numbness. Fell due to right-sided weakness out of bed. FINDINGS Following MR sequences were obtained to the brain: T1 sagittal and axial, T2 FLAIR, diffusion weighted gradient-echo and ADC map axial. Comparison to CT examination 10/24/2016. The brainstem is unremarkable. The diffusion weighted imaging through the brain shows an approximately 9.0-10.0 mm focus of FLAIR T2 and diffusion weighted hyperintensity in the anterior left putamen and involving a portion of the anterior limb of the right internal capsule. This corresponds to hypodense focus seen on prior CT examination. It shows diminished signal intensity on ADC map and is most consistent with subacute ischemic infarct. No other areas of diffusion weighted signal abnormality are seen. There is no evidence of hemorrhage. There are small focal areas of FLAIR and T2 hyperintensity in the right thalamus and left parietal lobe periventricular white matter most consistent with small foci of chronic small vessel ischemic change. The midline structures are nondisplaced. The ventricles, cisterns and sulci are within normal limits of size and contour. No intra or extraaxial mass effect or abnormal intracranial fluid collection. The visualized paranasal sinuses and mastoid air cells show evidence of some mucosal thickening in the bilateral mastoid air cells. Correlate with any clinical signs or symptoms of mastoid inflammation. The major vascular flow voids appear grossly patent. [facility] A Service of [facility] & [facility] RADIOLOGY TEXT RESULTS PATIENT: LOUIS FRANCISCO LOCATION: [address] : 56 UNIT #: [id number] AGE: [address]: Kevin Anthony MD SEX: M ORDER DR: 1. 9.0-10.0 mm subacute ischemic infarct in the anterior left putamen and probably involving a portion of the left internal capsule anterior limb as well. No associated hemorrhage or mass effect. No other areas of acute or subacute ischemic change. 2. Tiny foci of FLAIR and T2 hyperintensity in right thalamus and left parietal periventricular white matter favored to be small foci of chronic small vessel ischemic change. 3. No intracranial mass effect or abnormal fluid collection. 4. Probable mucosal thickening bilateral mastoid air cells. Correlate with any clinical indications of mastoid inflammation. 5. See remainder of ancillary findings in body of report above. Dictated by... Jose Ramon Hamlin M.D. THIS IS AN ELECTRONICALLY VERIFIED REPORT Jose Ramon Hamlin M.D. at 10/25/2016 6:52 PM Lissette TD: 10/25/2016 10:47 JOB #: [id number] MRI CENTER REPORT Page 1 of 1 COPY
--- NOTE | ~2016-10-24 | A ---
[facility] Therapy DATE: 10/25/16 Patient: LOUIS Mcleod MARYAM Physician: MADI Address: [address] [place] [address] Room/Bed: [address], Zip: [place] [address] Admit Date: 10/24/16 Date of : [birth year] Height: 5 11 Weight: 138 63 NUTRITIONAL ASSESSMENT: REASON: PT SEEN FOR DX + CONSULT PT IS 56 Y.O. MALE ADMITTED FOR CVA PMH: HTN, HLD, DM Anthropometrics: 5'11.5", WT: 145# (66 KG), BMI: 19.9, 83%IBW Labs: GLU: 218, BUN: 28, CREAT: 1.6, CA+:7.9, ALB: 2.6, K+:3.2, TGs: 353, GFR: 54.3, CHOL: 521, LDL: 366, HDL: 84 Meds: VITAMIN D, LIPITOR, LEVEMIR, NOVOLOG, NACL I/O & Bowel function: -/200 Skin Integrity: NO KNOWN SKIN ISSUES Estimated Nutrition Needs: INCREASED NEEDS 2' CURRENT CONDITION, LOW BODY WEIGHT NOTED Assessment: CHART REVIEWED AND EVENTS NOTED. PT SEEN FOR DX + CONSULT. PT SLEEPY/LETHARGIC AT TIME OF VISIT REPORTING GOOD PO INTAKE AND APPETITE PRIOR TO ICU ADMIT. PT ADMITTED FOR CVA, (R) SIDED-WEAKNESS. QA TESTER DEEMED PT APPROPRIAT FOR DIET ADVANCEMENT THIS AM- HH+CC DIET. PT DENIES ANY RECENT WEIGHT LOSS (PT WEIGHED ~145# IN 2013). RD ATTEMPTED TO PROVIDE WRITTEN AND VERBAL CC+HH DIET EDUCATION. PT REPORTED CONSUMING SAUSAGE AND EGGS FOR BREAKFAST AND SOUP FOR LUNCH AT HOME. THIS RD ENCOURGED PT TO CUT BACK ON SALT INTAKE, PT AGREED AND REPORTED NO DIET QUESTIONS AT THIS VISIT. RD TO FOLLOW-UP ON EDUCATION NEEDS AT NEXT MEETING. Dx: ALTERED NUTRIENT UTILIZATION R/T PMH, CURRENT DIAGNOSIS AEB NEED FOR THERAPEUTIC DIET ORDER. Intervention: 1. CC+HH DIET 2. RD CONSULT 3. DIET EDUCATION Monitoring, Evaluation and Goals: 1. ORAL INTAKE; CONSUME/TOLERATE >50% OF MEALS 2. WEIGHTS; PREVENT WEIGHT LOSS; PROMOTE WEIGHT MAINTENANCE 3. LABS; GLU, LIPID PROFILE MONITOR ABOVE GOALS [facility] Therapy DATE: 10/25/16 Patient: LOUIS FRANCISCO Physician: MADI Address: [address] [place] [address] Room/Bed: [address], Zip: [place] [address] Admit Date: 10/24/16 Date of : 56 Height: 5 11 Weight: 138 63 Recommendations: 1. CONTINUE CURRENT DIET ORDER ABOVE 2' PMH, CURRENT DIAGNOSIS 2. CONSIDER ORDERING SUPPLEMENTS BID (GLUCERNA SHAKES, ENSURE PUDDING, ENSURE CLEAR BID) IF PO INTAKE <50%, FOR ADDITIONAL PROTEIN AND KCAL 3. ENCOURAGE ADEQUATE PO INTAKE, PT IS 83%IBW RD WILL F/U PER PROTOCOL PT IS MILDLY COMPROMISED Respectfully, HERNESTO BROWNING MS, RD, LD [employer] [facility] cc: client file
--- NOTE | ~2016-10-24 | TH ---
Unit #: [id number] #: [id number] Patient: LOUIS FRANCISCO [id number] [facility]. [place] [id number] [facility]. [place], [place] [address] [id number] I MR#: [id number] NAME: LOUIS FRANCISCO. : 1960 SEX: M STUDY DATE/TIME: 10/26/2016 UNIT: [facility] ROOM: [facility] STUDY DESCRIPTION: Lexiscan stress test - Nuclear Attending Physician: Kevin Anthony M.D. Primary Care Physician: Tk David Sr., M.D. CARDIOLOGY REPORT PROCEDURE PERFORMED Lexiscan Cardiolite stress test - Nuclear portion. PROCEDURE Using technetium 99m-labeled Cardiolite, rest and stress SPECT images were obtained. Multiple SPECT images were obtained in various views, including horizontal and vertical long axis and short axis views of the left ventricle. Images were obtained by gated SPECT method. The patient was administered 10.19 mCi of Cardiolite at rest. The patient was administered 32.4 mCi of Cardiolite after Lexiscan infusion was completed. On the stress images, there is normal perfusion noted. The rest images show normal perfusion. Comparing the rest and stress images, there is no stress-induced ischemia noted. The left ventricular ejection fraction is calculated to be 49%. There is no focal wall motion abnormality seen. CONCLUSION 1. No stress-induced ischemia noted. 2. The left ventricular ejection fraction is calculated to be 49%. 3. There is no focal wall motion abnormality seen. 4. Normal Lexiscan Cardiolite stress test. 5. Technically limited study due to significant gut uptake. Clinical correlation is requested. Dictated by... Deanne Recio TD: 10/26/2016 15:50 JOB #: [id number] CARDIOLOGY REPORT Page 1 of 1 X Maribeth Mcclellan MD <ELECTRONICALLY SIGNED> 12/22/16 1524 CARDIOLOGY REPORT
[~2016-10-24 12:15] MED LIST: CRESTOR10 MG PO; LANTUS100 U/ML SUBQ; LISINOPRIL10 MG PO; NOVOLOG7030; TRAMADOL HCL50 M2 PO; VITAMIN D5000 UNIT PO
[2016-10-24 14:04] LABS: BASOPHIL# 0.1 X10e3 (0-0.3); EOSINOPHIL% 0.1 % (0.0-7.0); HEMATOCRIT 44.3 % (38.0-50.0); HEMOGLOBIN 14.8 gm/dL (13.0-16.0); LYMPHOCYTE% 19.2 % (17.0-45.0); MEAN CELL VOLUME 90.7 FL (83-96); MEAN CORPUSCULAR HEMOGLOBIN 30.3 PG (28-34); MEAN CORPUSCULAR HGB CONC 33.4 g/dL (30-36); MEAN PLATELET VOLUME 7.9 FL (6.5-11.5); MONOCYTE# 0.5 X10e3 (0-1.0); NEUTROPHIL# 7.7 X10e3 (1.5-7.1); NEUTROPHIL% 74.7 % (40-75); PLATELET COUNT 347 X10e3 (140-420); RED BLOOD COUNT 4.89 X10e (3.90-5.60); RED CELL DISTRIBUTION WIDTH 12.9 % (11.0-15.5); WHITE BLOOD COUNT 10.4 X10e3 (4.0-10.5)
[2016-10-24 14:10] LABS: DIFF IND NO
[2016-10-24 14:20] LABS: PARTIAL THROMBOPLASTIN TIME 33.1 SECONDS (23.5-31.3); PROTHROMBIN TIME (PATIENT) 10.8 SECONDS (10.0-11.7)
[2016-10-24 14:25] LABS: ALBUMIN SERUM 2.6 g/dL (3.5-5.0); BILIRUBIN, DIRECT 0.1 mg/dL (0.0-0.2); BILIRUBIN,INDIRECT 1.2 mg/dL (0.0-0.9); BILIRUBIN,TOTAL 1.3 mg/dL (0.2-2.0); BUN/CREATININE RATIO 15.29; CALCIUM SERUM 8.7 mg/dL (8.4-10.2); CREATININE SERUM 1.7 mg/dL (0.6-1.4); GLOM FILT RATE Estimated 50.4 mL/min (>60); POTASSIUM 3.7 mmol/L (3.5-5.1); PROTEIN TOTAL SERUM 6.9 g/dL (6.0-8.3)
[2016-10-24] MEDS ORDERED: MICROZIDE12.5 M1 PO (15:52)
[2016-10-24 16:50] LABS: CHOLESTEROL 521 mg/dL (0-200); HDL CHOLESTEROL 84 mg/dL (29-75); LDL/HDL RATIO 4 RATIO (0-4); TRIGLYCERIDES 353 mg/dL (10-160)
[2016-10-24 16:52] LABS: LDL CHOLESTEROL 366 mg/dL (-130)
[2016-10-25 08:33] LABS: BUN/CREATININE RATIO 17.5; CALCIUM SERUM 7.9 mg/dL (8.4-10.2); CREATININE SERUM 1.6 mg/dL (0.6-1.4); GLOM FILT RATE Estimated 54.3 mL/min (>60); POTASSIUM 3.2 mmol/L (3.5-5.1)
[2016-10-25 08:38] LABS: %MB 4.5 % (0.0-4.0); MB 4.2 ng/ml
[2016-10-25 13:18] LABS: %MB 4.7 % (0.0-4.0); MB 4.3 ng/ml
[2016-10-25 15:36] LABS: BASOPHIL# 0.1 X10e3 (0-0.3); BASOPHIL% 0.8 % (0-2.5); EOSINOPHIL% 0.2 % (0.0-7.0); HEMATOCRIT 39.3 % (38.0-50.0); LYMPHOCYTE# 2.7 X10e3 (1.0-3.5); LYMPHOCYTE% 28.6 % (17.0-45.0); MEAN CELL VOLUME 91.3 FL (83-96); MEAN CORPUSCULAR HEMOGLOBIN 29.8 PG (28-34); MEAN CORPUSCULAR HGB CONC 32.6 g/dL (30-36); MEAN PLATELET VOLUME 7.5 FL (6.5-11.5); MONOCYTE# 0.6 X10e3 (0-1.0); MONOCYTE% 6.6 % (3.0-12.0); NEUTROPHIL# 5.9 X10e3 (1.5-7.1); NEUTROPHIL% 63.8 % (40-75); PLATELET COUNT 282 X10e3 (140-420); RED CELL DISTRIBUTION WIDTH 13.2 % (11.0-15.5); WHITE BLOOD COUNT 9.3 X10e3 (4.0-10.5)
[2016-10-25 15:39] LABS: DIFF IND NO; HEMOGLOBIN 12.8 gm/dL (13.0-16.0)
[2016-10-25 15:52] LABS: PARTIAL THROMBOPLASTIN TIME 38.5 SECONDS (23.5-31.3); PROTHROMBIN TIME (PATIENT) 11.3 SECONDS (10.0-11.7)
[2016-10-26 04:21] LABS: BASOPHIL# 0.1 X10e3 (0-0.3); BASOPHIL% 0.7 % (0-2.5); EOSINOPHIL# 0.1 X10e3 (0-0.7); EOSINOPHIL% 0.6 % (0.0-7.0); HEMATOCRIT 36.9 % (38.0-50.0); HEMOGLOBIN 12.3 gm/dL (13.0-16.0); LYMPHOCYTE# 2.6 X10e3 (1.0-3.5); LYMPHOCYTE% 28.9 % (17.0-45.0); MEAN CORPUSCULAR HEMOGLOBIN 30.4 PG (28-34); MEAN CORPUSCULAR HGB CONC 33.4 g/dL (30-36); MEAN PLATELET VOLUME 7.5 FL (6.5-11.5); MONOCYTE# 0.8 X10e3 (0-1.0); MONOCYTE% 9.1 % (3.0-12.0); NEUTROPHIL# 5.5 X10e3 (1.5-7.1); NEUTROPHIL% 60.7 % (40-75); PLATELET COUNT 284 X10e3 (140-420); RED BLOOD COUNT 4.05 X10e (3.90-5.60); RED CELL DISTRIBUTION WIDTH 13.3 % (11.0-15.5); WHITE BLOOD COUNT 9.1 X10e3 (4.0-10.5)
[2016-10-26 04:23] LABS: DIFF IND NO
[2016-10-26 04:56] LABS: CALCIUM SERUM 8.1 mg/dL (8.4-10.2); GLOM FILT RATE Estimated 41.4 mL/min (>60); POTASSIUM 3.6 mmol/L (3.5-5.1)
[2016-10-26 20:15] LABS: URINE SOURCE CLEAN CATCH
[2016-10-26 20:30] LABS: URINE APPEARANCE CLOUDY; URINE BACTERIA AUWI NEG (NEGATIVE); URINE BILIRUBIN NEG (NEG); URINE BLOOD TRACE (NEG); URINE COLOR YELLOW; URINE GLUCOSE 250 MG/DL (NEG); URINE KETONE NEG (NEG); URINE LEUKOCYTE ESTERASE NEG (NEG); URINE NITRATE NEG (NEG); URINE PROTEIN 1+ (NEG); URINE SPECIFIC GRAVITY 1.028 (1.003-1.035); URINE SQUAMOUS EPITHELIAL CELL NONE SEEN /[HPF]; URINE UROBILINOGEN 0.2 MG/DL (NEG)
[2016-10-26 20:40] LABS: CREATININE,RANDOM URINE 122 mg/dL; SODIUM URINE RANDOM 29 mmol/L
[2016-10-26 20:41] LABS: TOTAL PROTEIN,RANDOM URINE 783 mg/dl (<10)
[2016-10-27 05:14] LABS: BASOPHIL# 0.1 X10e3 (0-0.3); EOSINOPHIL# 0.1 X10e3 (0-0.7); EOSINOPHIL% 0.7 % (0.0-7.0); HEMOGLOBIN 12.6 gm/dL (13.0-16.0); LYMPHOCYTE# 2.8 X10e3 (1.0-3.5); LYMPHOCYTE% 28.7 % (17.0-45.0); MEAN CELL VOLUME 91.1 FL (83-96); MEAN CORPUSCULAR HEMOGLOBIN 30.1 PG (28-34); MEAN PLATELET VOLUME 7.8 FL (6.5-11.5); MONOCYTE# 0.8 X10e3 (0-1.0); MONOCYTE% 7.7 % (3.0-12.0); NEUTROPHIL# 6.1 X10e3 (1.5-7.1); NEUTROPHIL% 61.9 % (40-75); PLATELET COUNT 283 X10e3 (140-420); RED BLOOD COUNT 4.17 X10e (3.90-5.60); RED CELL DISTRIBUTION WIDTH 13.1 % (11.0-15.5); WHITE BLOOD COUNT 9.9 X10e3 (4.0-10.5)
[2016-10-27 05:17] LABS: DIFF IND NO
[2016-10-27 05:28] LABS: INR 1.1; PROTHROMBIN TIME (PATIENT) 11.4 SECONDS (10.0-11.7)
[2016-10-27 06:06] LABS: BILIRUBIN,TOTAL 0.3 mg/dL (0.2-2.0); GLOM FILT RATE Estimated 41.4 mL/min (>60); MAGNESIUM 1.8 mg/dL (1.6-3.0); PHOSPHOROUS 3.9 mg/dL (2.5-4.6); POTASSIUM 3.4 mmol/L (3.5-5.1); PROTEIN TOTAL SERUM 4.8 g/dL (6.0-8.3); URIC ACID 6.4 mg/dL (2.6-7.2)
[2016-10-28 05:18] LABS: HEMATOCRIT 35.4 % (38.0-50.0); HEMOGLOBIN 11.7 gm/dL (13.0-16.0); MEAN CELL VOLUME 91.4 FL (83-96); MEAN CORPUSCULAR HEMOGLOBIN 30.2 PG (28-34); MEAN PLATELET VOLUME 7.6 FL (6.5-11.5); RED BLOOD COUNT 3.87 X10e (3.90-5.60); RED CELL DISTRIBUTION WIDTH 13.1 % (11.0-15.5); WHITE BLOOD COUNT 8.7 X10e3 (4.0-10.5)
[2016-10-28 05:33] LABS: INR 1.1; PROTHROMBIN TIME (PATIENT) 12.3 SECONDS (10.0-11.7)
[2016-10-28 06:00] LABS: BUN/CREATININE RATIO 14.11; CALCIUM SERUM 8.1 mg/dL (8.4-10.2); CREATININE SERUM 1.7 mg/dL (0.6-1.4); GLOM FILT RATE Estimated 50.4 mL/min (>60); POTASSIUM 4.2 mmol/L (3.5-5.1)
[2016-10-28 08:29] LABS: CREATININE SERUM 1.7 mg/dL (0.6-1.4); GLOM FILT RATE Estimated 50.4 mL/min (>60)
[2016-10-29 06:19] LABS: INR 1.5
[2016-10-29 06:20] LABS: HEMATOCRIT 36.4 % (38.0-50.0); HEMOGLOBIN 11.9 gm/dL (13.0-16.0); MEAN CELL VOLUME 91.6 FL (83-96); MEAN CORPUSCULAR HGB CONC 32.8 g/dL (30-36); MEAN PLATELET VOLUME 8.3 FL (6.5-11.5); RED BLOOD COUNT 3.98 X10e (3.90-5.60); RED CELL DISTRIBUTION WIDTH 13.6 % (11.0-15.5); WHITE BLOOD COUNT 8.5 X10e3 (4.0-10.5)
[2016-10-29 06:46] LABS: BUN/CREATININE RATIO 15.33; CALCIUM SERUM 8.5 mg/dL (8.4-10.2); CREATININE SERUM 1.5 mg/dL (0.6-1.4); GLOM FILT RATE Estimated 58.7 mL/min (>60); POTASSIUM 4.6 mmol/L (3.5-5.1)
[2016-10-30 06:30] LABS: INR 1.7; PROTHROMBIN TIME (PATIENT) 18.1 SECONDS (10.0-11.7)
[2016-10-30 07:28] LABS: BUN/CREATININE RATIO 15.33; CALCIUM SERUM 8.3 mg/dL (8.4-10.2); CREATININE SERUM 1.5 mg/dL (0.6-1.4); GLOM FILT RATE Estimated 58.7 mL/min (>60); POTASSIUM 4.2 mmol/L (3.5-5.1)
[2016-10-31 05:24] LABS: HEMATOCRIT 35.5 % (38.0-50.0); HEMOGLOBIN 11.6 gm/dL (13.0-16.0); MEAN CELL VOLUME 91.3 FL (83-96); MEAN CORPUSCULAR HEMOGLOBIN 29.8 PG (28-34); MEAN CORPUSCULAR HGB CONC 32.6 g/dL (30-36); MEAN PLATELET VOLUME 7.8 FL (6.5-11.5); RED BLOOD COUNT 3.89 X10e (3.90-5.60); RED CELL DISTRIBUTION WIDTH 13.3 % (11.0-15.5); WHITE BLOOD COUNT 7.4 X10e3 (4.0-10.5)
[2016-10-31 05:36] LABS: INR 1.7
[2016-10-31 06:24] LABS: BUN/CREATININE RATIO 17.85; CALCIUM SERUM 8.3 mg/dL (8.4-10.2); CREATININE SERUM 1.4 mg/dL (0.6-1.4); GLOM FILT RATE Estimated 63.8 mL/min (>60); POTASSIUM 4.2 mmol/L (3.5-5.1)
[2016-11-01 01:28] LABS: COMPLEMENT C3 153 mg/dL (90-180); COMPLEMENT C4 46 mg/dL (16-47)
[2016-11-02 23:03] LABS: ANA SCREEN Negative (Negative); HEP C AB (HEPPAN) Nonreactive (Nonreactive); HEP C AB SIGNAL TO CUTOFF 0.02 ratio (<1.00)
== END 2016-10-31 16:21 | DRG 65 ==
LOC: CED 12:15 → C3A PCU 15:45 → CEDOF 15:45 → CED 16:10 → CICCU2 16:10 → CEDOF 16:10 → CICCU2 22:37 → C3A PCU 10-26 21:49
PROVIDERS: Emergency Medicine; Internal Medicine; Internal Medicine Cardiovascular Disease; Internal Medicine Nephrology; Internal Medicine Pulmonary Disease
PROC: B32TYZZ Computerized Tomography (CT Scan) of Left Pulmonary Artery using Other Contrast (ICD-10-PCS; principal; 2016-10-25)
PROC: B32SYZZ Computerized Tomography (CT Scan) of Right Pulmonary Artery using Other Contrast (ICD-10-PCS; 2016-10-25)
PROC: B246YZZ Ultrasonography of Right and Left Heart using Other Contrast (ICD-10-PCS; 2016-10-25)
PROC: B246ZZ4 Ultrasonography of Right and Left Heart, Transesophageal (ICD-10-PCS; 2016-10-26)
DX: I63.342 Cerebral infarction due to thrombosis of left cerebellar artery (principal); G81.91 Hemiplegia, unspecified affecting right dominant side; N17.9 Acute kidney failure, unspecified; I11.0 Hypertensive heart disease with heart failure; I50.42 Chronic combined systolic (congestive) and diastolic (congestive) heart failure; Q21.1 Atrial septal defect; E11.9 Type 2 diabetes mellitus without complications; F17.200 Nicotine dependence, unspecified, uncomplicated; Z82.3 Family history of stroke; Z82.49 Family history of ischemic heart disease and other diseases of the circulatory system; Z80.3 Family history of malignant neoplasm of breast; Z79.4 Long term (current) use of insulin; E87.6 Hypokalemia; E78.00 Pure hypercholesterolemia, unspecified; I16.0 Hypertensive urgency; M06.9 Rheumatoid arthritis, unspecified; Z71.6 Tobacco abuse counseling; I65.22 Occlusion and stenosis of left carotid artery
CPT/HCPCS: 36415; 70450; 70496; 70498; 70544; 70547; 70551; 76770; 78452; 80048; 80053; 80061; 80076; 81003; 82550; 82553; 82565; 82570; 82947; 83036; 83735; 84100; 84156; 84300; 84484; 84550; 85025; 85027; 85610; 85730; 86038; 86039; 86160; 86334; 86803; 92507; 92523-GN; 92610; 93005; 93017; 93306; 93312; 96374; 96376; 97110; 97116; 97162; 97167; 97530; 97535; 99285; A9500; G8978-GP; G8979-GP; G8980-GP; G8987-GO; G8988-GO; G8999-GN; G9158-GN; G9186-GN; J0360; J1644; J1650; J1815; J2250; J2785; J3010; Q9967